=== PATIENT | male | born 1935 | race Caucasian/White ===

== ENCOUNTER 2017-01-17 23:34 | Inpatient (IN) | payer MEDICARE, OTHER ==
[~2017-01-17] VITALS: Ht 180.3 cm; Wt 88.0 kg
[~2017-01-17 23:34] MED LIST: ACET1TAB49 PO; ALLO300T46 PO; LISI-325 PO; METF500T4 PO; NIFE30TA PO; OMEP20CA9 PO; TAMS-14
[2017-01-18] MEDS ORDERED: ONDANSETRON 4 MG INJ IV STA (01:51)
--- NOTE | 2017-01-18 01:52 | RADRPT ---
PROCEDURE: XR Chest. CLINICAL INDICATION: Chest pain. TECHNIQUE: Single frontal view of the chest. COMPARISON: None. FINDINGS: Mild cardiomegaly. Mild atherosclerotic calcifications in the thoracic aorta. The lungs are clear. N o signs of pleural fluid or pneumothorax are seen. The osseous structures and soft tissues are unrem arkable. IMPRESSION: No evidence for active cardiopulmonary disease. RPTAT: [facility] Physician Yohana Date Time Electronically viewed and signed by Forest Rodriguez Physician on 01/18/2017 01:52 RS/
[2017-01-18 02:22] LABS: BASOPHILS % 0.3 % (0.0-2.0); EOSINOPHILS % 0.1 % (0.0-7.0); HEMATOCRIT 41.7 % (42.0-52.0); HEMOGLOBIN 14.7 g/dl (14.0-18.0); LYMPHOCYTES # 0.6 10^3/ul (0.8-2.9); LYMPHOCYTES % 5.9 % (15.0-51.0); MEAN CORPUSCULAR HEMOGLOBIN 30.8 pg (29.0-33.0); MEAN CORPUSCULAR HGB CONC 35.3 g/dl (32.0-37.0); MEAN CORPUSCULAR VOLUME 87.4 fl (82.0-101.0); MEAN PLATELET VOLUME 11.4 fl (7.4-10.4); MONOCYTE # 0.5 10^3/ul (0.3-0.9); NEUTROPHILS % 88.2 % (39.0-77.0); PLATELET COUNT 167 10^3/UL (140-415); RED BLOOD COUNT 4.77 10^6/ul (4.70-6.10); RED CELL DISTRIBUTION WIDTH 12.7 % (11.5-14.5); WHITE BLOOD COUNT 10.5 10^3/ul (4.8-10.8)
[2017-01-18 02:40] LABS: INR 0.9; PARTIAL THROMBOPLASTIN TIME 25.6 Sec (25.0-35.0); PROTIME 12.1 Sec (12.2-14.2); PT RATIO 0.9
[2017-01-18 02:47] LABS: ALANINE AMINOTRANSFERASE 59 IU/L (13-69); ALBUMIN 4.3 g/dl (3.3-4.9); ALBUMIN/GLOBULIN RATIO 1.38; ALKALINE PHOSPHATASE 113 IU/L (42-121); ANION GAP 14 (8-16); ASPARTATE AMINO TRANSFERASE 36 IU/L (15-46); BILIRUBIN,INDIRECT 0.4 mg/dl (0-1.1); BILIRUBIN,TOTAL 0.4 mg/dl (0.2-1.3); BLOOD UREA NITROGEN 26 mg/dl (7-20); CALCIUM 9.8 mg/dl (8.4-10.2); CARBON DIOXIDE 29 mmol/L (21-31); CHLORIDE 101 mmol/L (97-110); CREATININE 1.19 mg/dl (0.61-1.24); GLUCOSE 271 mg/dl (70-220); POTASSIUM 4.3 mmol/L (3.5-5.1); SODIUM 140 mmol/L (135-144); TOTAL PROTEIN 7.4 g/dl (6.1-8.1)
--- NOTE | 2017-01-18 02:58 | RADRPT ---
PROCEDURE: CT of the abdomen and pelvis without contrast CLINICAL INDICATION: Abdominal pain TECHNIQUE: Spiral CT images through the abdomen and pelvis without the use of contrast. The admin istered radiation dose is CTDI 17.1 mGy and DLP 1185.01 mGy*cm. Coronal and sagittal reformatted im ages were submitted. One or more of the following dose reduction techniques were used: automated ex posure control, adjustment of the mA and/or kV according to patient size, or use of iterative recons truction technique. COMPARISON: 09/21/2013 FINDINGS: Lack of oral and intravenous contrast somewhat limits evaluation. The lung bases are clear. No pl eural or pericardial effusion is seen. The thoracic aorta is calcified and ectatic.. The liver is normal in size, and attenuation. The spleen is enlarged measuring 16.7 cm. There is fat ty infiltration of the pancreas. Normal right adrenal gland. Unchanged small left adrenal nodule. Th e gallbladder is distended with a few small gallstones. No biliary ductal dilatation is seen. There are multiple bilateral cortical and parapelvic renal cysts, greater on the right, the largest measur ing 8.6 x 7.5 cm. the small fat density lesion in the left kidney is unchanged. There is no evidenc e of obstructive uropathy. The aorta is calcified and normal in caliber. There is no evidence for andrey wel obstruction, free air, or abscess. The appendix is not visualized. There is colonic diverticul osis without evidence of diverticulitis. No adenopathy or ascites is seen. The bladder is distended. There is a right bladder diverticulum . The prostate gland is moderately enlarged. Left hydrocele i s again noted. There are degenerative changes in the spine and mild levoscoliosis. Unchanged sclerotic lesion in the posterior right acetabulum. Bilateral hip osteoarthritis.. IMPRESSION: Distended gallbladder with small gallstones.. Colonic diverticulosis without evidence of acute diverticulitis. Bilateral cortical and parapelvic renal cysts. No evidence of obstructive uropathy. Splenomegaly. Prostatic hypertrophy and bladder diverticulum. RPTAT: [facility] Physician Dar Date Time Electronically viewed and signed by Physician Dar on 01/18/2017 02:57 CS/
[2017-01-18 02:59] LABS: B-TYPE NATRIURETIC PEPTIDE 60 PG/ML (0-450)
[2017-01-18] MEDS ORDERED: NAPR550T48 PO (03:03)
[2017-01-18] MEDS ORDERED: ASPI-664 PO (03:03)
[2017-01-18] MEDS ORDERED: SIMV20TA PO (03:03)
[2017-01-18] MEDS ORDERED: METO25TA4 PO (03:03)
[2017-01-18] MEDS ORDERED: CYAN500T46 PO (03:03)
[2017-01-18] MEDS ORDERED: SUMA100T4 PO (03:03)
[2017-01-18 03:11] LABS: TROPONIN-I < 0.012 ng/ml (0.00-0.12)
[2017-01-18] MEDS ORDERED: METOPROLOL 25 MG TAB PO ONE (03:30)
[2017-01-18] MEDS ORDERED: morphine 4 MG/ML VIAL IV ONE (04:18)
--- NOTE | 2017-01-18 05:30 | ERA ---
ER Documentation Chief Complaint Date/Time DATE: 01/18/17 TIME: 05:28 Chief Complaint chest pain HPI 81-year-old male here with chest pain and abdominal pain for the past 2 days getting progressively worse. He says the pain starts as a spasm in his lower chest and was on his upper abdomen. No fevers no chills. Mild nausea no vomiting. Pain is mild to moderate intensity ROS All systems reviewed and are negative except as per history of present illness. Medications Home Meds Reported Medications Cyanocobalamin* (Vitamin B12*) 500 Mcg Tab, 2000 MCG PO DAILY, TAB 01/18/17 Cyanocobalamin* (Vitamin B12*) 500 Mcg Tab, 500 MCG PO DAILY, TAB 01/18/17 Sumatriptan Succinate* (Sumatriptan Succinate*) 100 Mg Tablet, 100 MG PO BID Y for MIGRAINE HEADACHE, TAB May repeat after 2 hours if needed; MAX 200 mg/24 hours 01/18/17 Naproxen* (Naproxen*) 550 Mg Tablet, 550 MG PO BID Y for PAIN, TAB 01/18/17 Aspirin* (Aspirin* EC) 81 Mg Tablet.dr, 81 MG PO DAILY, TAB 01/18/17 Metoprolol Tartrate* (Lopressor*) 25 Mg Tablet, 25 MG PO BID, #60 TAB 01/18/17 Simvastatin* (Zocor*) 20 Mg Tablet, 20 MG PO QHS, #30 TAB 01/18/17 Tamsulosin Hcl* (Flomax*) 0.4 Mg Cap.sr.24h 02/11/11 Nifedipine* (Afeditab CR*) 30 Mg Tablet.sa, 60 MG PO DAILY 02/11/11 Metformin* (Glucophage*) 500 Mg Tab, 500 MG PO BID 02/11/11 Allopurinol* (Zyloprim*) 300 Mg Tablet, 300 MG PO DAILY 02/11/11 Lisinopril-Hydrochlorothiazide (Lisinopril-HCTZ) 1 Tab Tablet, 1 TAB PO DAILY 02/11/11 Omeprazole* (Prilosec*) 20 Mg Capsule.dr, 20 MG PO DAILY 02/11/11 Discontinued Reported Medications Acetaminophen/Phenyltolx Cit (Asa Free Analgesic Tablet) 1 Tab Tablet, 81 MG PO DAILY 02/11/11 Allergies Allergies: Coded Allergies: No Known Allergy (Unverified , 01/18/17) PMhx/Soc History of Surgery: Yes (bilat knee replacement, vocal cord polyps removed) Anesthesia Reaction: No Hx Respiratory Disorders: No Hx Cardiac Disorders: No (HTN) Hx Psychiatric Problems: No Hx Miscellaneous Medical Probl: Yes (frequent falls) Hx Alcohol Use: No Hx Substance Use: No Hx Tobacco Use: Yes (quit years ago) Smoking Status: Former smoker Physical Exam Vitals Vital Signs Date Time Temp Pulse Resp B/P Pulse Ox O2 Delivery O2 Flow Rate FiO2 01/18/17 04:12 95 172/104 96 Room Air 01/18/17 03:00 94 170/97 93 Room Air 01/18/17 02:28 Nasal Cannula 2 01/18/17 02:00 95 173/82 97 Room Air 01/18/17 01:25 91 183/102 95 Room Air 01/18/17 00:13 91 164/58 01/17/17 23:42 97.9 97 20 177/103 96 Physical Exam Const: [] Head: Atraumatic Eyes: Normal Conjunctiva ENT: Normal External Ears, Nose and Mouth. Neck: Full range of motion..~ No meningismus. Resp: Clear to auscultation bilaterally Cardio: Regular rate and rhythm, no murmurs Abd: Soft, non tender, non distended. Normal bowel sounds Skin: No petechiae or rashes Back: No midline or flank tenderness Ext: No cyanosis, or edema Neur: Awake and alert Psych: Normal Mood and Affect Result Diagram: 01/18/17 0210 01/18/17 0210 Results 24 hrs Laboratory Tests Test 01/18/17 02:10 White Blood Count 10.510^3/ul Red Blood Count 4.7710^6/ul Hemoglobin 14.7g/dl Hematocrit 41.7% Mean Corpuscular Volume 87.4fl Mean Corpuscular Hemoglobin 30.8pg Mean Corpuscular Hemoglobin Concent 35.3g/dl Red Cell Distribution Width 12.7% Platelet Count 85410^3/UL Mean Platelet Volume 11.4fl Neutrophils % 88.2% Lymphocytes % 5.9% Monocytes % 5.0% Eosinophils % 0.1% Basophils % 0.3% Nucleated Red Blood Cells % 0.0/100WBC Neutrophils # (Manual) 9.310^3/ul Lymphocytes # 0.610^3/ul Monocytes # 0.510^3/ul Eosinophils # 0.010^3/ul Basophils # 0.010^3/ul Nucleated Red Blood Cells # 0.010^3/ul Prothrombin Time 12.1Sec Prothrombin Time Ratio 0.9 INR International Normalized Ratio 0.90 Activated Partial Thromboplast Time 25.6Sec Sodium Level 140mmol/L Potassium Level 4.3mmol/L Chloride Level 101mmol/L Carbon Dioxide Level 29mmol/L Anion Gap 14 Blood Urea Nitrogen 26mg/dl Creatinine 1.19mg/dl Glucose Level 271mg/dl Calcium Level 9.8mg/dl Total Bilirubin 0.4mg/dl Direct Bilirubin 0.00mg/dl Indirect Bilirubin 0.4mg/dl Aspartate Amino Transf (AST/SGOT) 36IU/L Alanine Aminotransferase (ALT/SGPT) 59IU/L Alkaline Phosphatase 113IU/L Troponin I < 0.012ng/ml B-Type Natriuretic Peptide 60PG/ML Total Protein 7.4g/dl Albumin 4.3g/dl Globulin 3.10g/dl Albumin/Globulin Ratio 1.38 Current Medications Medications (Trade) Dose Ordered Sig/Starr Route PRN Reason Start Time Stop Time Status Last Admin Dose Admin Ondansetron HCl (Zofran Inj) 4 mg ONCE STAT IV 01/18/17 01:51 01/18/17 01:52 DC 01/18/17 02:12 Metoprolol Tartrate (Lopressor) 25 mg ONCE ONCE PO 01/18/17 03:30 01/18/17 03:31 DC 01/18/17 04:14 Morphine Sulfate (morphine) 4 mg ONCE ONCE IV 01/18/17 04:18 01/18/17 04:19 DC 01/18/17 04:47 Procedures/MDM EKG: Rate/Rhythm: [Normal Sinus Rhythm] QRS, ST, T-waves: [No changes consistent w/ acute ischemia] Impression: [No evidence of ischemia or arrhythmia] Chest X-ray 1V Interpreted by me: Soft Tissue: No acute abnormalities Bones: No acute abnormalities Mediastinum/Cardiac Silhouette/Lungs: [No acute abnormalities] Medical decision making: This is a very pleasant patient comes in with acute abdominal pain. Chest pain likely esophageal spasm related. There are gallstones and other findings on Monday decision with this abdominal pain, however the patient continues to have pain and will need to be admitted for the evaluation and management possible surgical consultation. Dr. Warren who has privileges here, we will admit the patient. His calling was on-call for him and accepted the patient Departure Diagnosis: Primary Impression: Abdominal pain Qualified Code: R10.84 - Generalized abdominal pain Condition: Stable WANDA CAGE Jan 18, 2017 05:30
[2017-01-18] MEDS ORDERED: hydrALAzine 20 MG INJ ONE (05:51)
[2017-01-18] MEDS ORDERED: hydrALAzine 20 MG INJ IV ONE ×2 (06:00→15:30)
[2017-01-18 08:14] VITALS: BP 139/83; RESP 16
[2017-01-18] MEDS ORDERED: DOCUSATE SODIUM 100 MG CAP PO PRN (11:30)
[2017-01-18] MEDS ORDERED: MAGNESIUM HYDROXIDE 30ML CUP PO PRN (11:30)
[2017-01-18] MEDS ORDERED: NACL 0.9% 3 ML SYG IV SCH (11:30)
[2017-01-18] MEDS ORDERED: morphine 2 MG INJ IV PRN (11:30)
[2017-01-18] MEDS ORDERED: BISACODYL 10 MG SUPP PR PRN (11:30)
[2017-01-18] MEDS ORDERED: ACETAMINOPHEN 325 MG TAB PO PRN (11:30)
[2017-01-18] MEDS ORDERED: HYDROCODONE/APAP (5/325) TAB PO PRN ×2 (11:30)
[2017-01-18] MEDS ORDERED: ACETAMINOPHEN 650 MG SUPP PR PRN (11:30)
[2017-01-18] MEDS ORDERED: NITROGLYCERIN (SL) 0.4 MG TAB SL PRN (11:30)
[2017-01-18] MEDS: INSULIN ASPART [NOVOLOG] 3 ML PEN SC SCH ×5 (12:00→21:13)
[2017-01-18 12:38] LABS: CREATINE KINASE 28 IU/L (23-200)
[2017-01-18] MEDS: SOD CHLORIDE 0.9% 1,000 ML IV SCH (12:46)
[2017-01-18 12:52] LABS: TROPONIN-I < 0.012 ng/ml (0.00-0.12)
[2017-01-18 13:03] VITALS: Ht 180.3 cm; Wt 88.0 kg
[2017-01-18 14:40] VITALS: BP 170/86; RESP 20
[2017-01-18] MEDS: ONDANSETRON 4 MG INJ IV PRN ×2 (15:00→21:23)
[2017-01-18] MEDS ORDERED: GLUCAGON 1 MG INJ IM PRN (16:00)
[2017-01-18] MEDS ORDERED: GLUCOSE GEL 15 GRAM TUBE BUCCAL PRN (16:00)
[2017-01-18] MEDS ORDERED: DEXTROSE 50% 50 ML SYRINGE IV PRN ×2 (16:00)
[2017-01-18] MEDS ORDERED: GLUCOSE GEL 15 GRAM TUBE PO PRN ×2 (16:00)
--- NOTE | 2017-01-18 16:22 | HP ---
Date/Time of Note Date/Time of Note DATE: 01/18/17 TIME: 16:18 Assessment/Plan VTE Prophylaxis VTE Prophylaxis Intervention: SCD's Lines/Catheters IV [facility]from [facility] [place] Assessment/Plan Chief Complaint/Hosp Course Impression and plan 1. Chest pain. Rule out ACS. We will follow-up until troponins. We will follow-up echocardiogram. 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 2. Abdominal pain. Patient noted with gallstones and symptomatic with pain upon palpation of abdomen. Surgeon to follow. Following reformations. 3. History of PUD. Start on PPI. 4. Hypertension. Continue antihypertensives as 5. Dyslipidemia. Continue on statin medication 6. Diabetes. Start insulin regimen. Will adjust as needed. Admission process time with a 40 minutes Discussed medical Problems: HPI/ROS Admit Date/Time Admit Date/Time Jan 18, 2017 at 05:24 Hx of Present Illness This is a 81-year-old male with history of high blood pressure high cholesterol and diabetes came developed [facility] due to reports of chest pain. According to the patient he started to have chest pain that started roughly around 4 PM the day prior to admission. Reported the pain is pressure-like in nature radiating down to his abdomen. He reports it was 10 out of 10 intensity. Nonexertional. He did come [facility] for further evaluation. Upon examination he did have a pelvic CT scan of his abdomen that did show him to have some distended gallbladder with small gallstones. There is also seen colonic diverticulosis without evidence of acute diverticulitis. Of note on labs initial troponin was negative. No white count noted. He was noted with high blood glucose as high as 271. His A1c was also 7.3. We will evaluate him for the aformentiond issues. ROS 12 point review of systems obtained and entirely negative except that mentioned in the history of present illness PMH/Family/Social Past Medical History Medical/surgical history 1. Hypertension 2. Diabetes 3. Hyperlipidemia Social History Smoking Status: Former smoker Exam/Review of Systems Vital Signs Vitals Vital Signs Date Time Temp Pulse Resp B/P Pulse Ox O2 Delivery O2 Flow Rate FiO2 01/18/17 14:40 97.3 80 20 170/86 95 01/18/17 06:41 Room Air 01/18/17 02:28 2 Exam Constitutional: alert, oriented Psych: nl mood/affect Head: normocephalic Eyes: nl conjunctiva Neck: supple, No jvd Gastrointestinal: soft, tender (diffusely) Musculoskeletal: No swelling Labs Result Diagram: 01/18/1720901/18/17209 Medications Medications Current Medications Morphine Sulfate (morphine) 1 mg Q4H PRN IV PAIN Last administered on 11:15; Admin Dose 1 MG; Start 01/18/17 at 11:30 Allopurinol (Zyloprim) 300 mg DAILY PO ; Start 01/19/17 at 09:00 Aspirin (Halfprin) 81 mg DAILY PO ; Start 01/19/17 at 09:00 Cyanocobalamin (Vitamin B12) 500 mcg DAILY PO ; Start 01/19/17 at 09:00 Metoprolol Tartrate (Lopressor) 25 mg BID PO ; Start 01/18/17 at 21:00 Nifedipine (Procardia Xl) 60 mg DAILY PO ; Start 01/19/17 at 09:00 Sumatriptan Succinate (Imitrex) 100 mg Q12H PRN PO MIGRAINE HEADACHE; Start at 11:30 Tamsulosin HCl (Flomax) 0.4 mg DAILY PO ; Start 01/19/17 at 09:00 Lisinopril (Zestril) 10 mg DAILY PO ; Start 01/19/17 at 09:00 Pantoprazole (Protonix Tab) 40 mg DAILY@06 PO ; Start 01/19/17 at 06:00 Atorvastatin Calcium 10 mg 10 mg DAILY@21 PO ; Start 01/18/17 at 21:00 Sodium Chloride (NS) 1,000 ml @ 75 mls/hr [id number] IV Last administered on 01/18 12:46; Admin Dose 75 MLS/HR; Start 01/18/17 at 11:22 Ondansetron HCl (Zofran Inj) 4 mg Q6H PRN IV NAUSEA AND/OR VOMITING Last administered on 01/18/17 15:00; Admin Dose 4 MG; Start 01/18/17 at 11:30 Acetaminophen (Tylenol Tab) 650 mg Q6H PRN PO PAIN LEVEL 1-3 OR FEVER; Start at 11:30 Acetaminophen (Tylenol Supp) 650 mg Q6H PRN NC PAIN LEVEL 1-3 OR FEVER; Start 01/18/17 at 11:30 Acetaminophen/ Hydrocodone Bitart ([place] (5/325)) 1 tab Q6H PRN PO MODERATE PAIN LEVEL 4-6; Start 01/18/17 at 11:30 Acetaminophen/ Hydrocodone Bitart ([place] (5/325)) 2 tab Q6H PRN PO SEVERE PAIN LEVEL 7-10; Start 01/18/17 at 11:30 Morphine Sulfate (morphine) 2 mg Q4H PRN IV SEVERE PAIN LEVEL 7-10; Start 01/18 at 11:30 Docusate Sodium (Colace) 100 mg Q12H PRN PO CONSTIPATION; Start 01/18/17 at 11: 30 Magnesium Hydroxide (Milk Of Mag) 30 ml DAILY PRN PO CONSTIPATION; Start at 11:30 Bisacodyl (Dulcolax Supp) 10 mg DAILY PRN NC CONSTIPATION; Start 01/18/17 at 11 :30 Pantoprazole (Protonix Iv) 40 mg DAILY@06 IV ; Start 01/19/17 at 06:00 Diagnostic Test (Pha) (Accu-Chek) 1 ea 02 XX ; Start 01/19/17 at 02:00 Nitroglycerin (Nitroglycerin (Sl Tab) 0.4 Mg) 1 tab Q5M PRN SL CHEST PAIN; Start 01/18/17 at 11:30 Diagnostic Test (Pha) (Accu-Chek) 1 ea 02 XX ; Start 01/19/17 at 02:00 Hydrochlorothiazide (Hydrochlorothiazide) 12.5 mg DAILY PO ; Start 01/19/17 at 09:00 Insulin Glargine (Lantus) 13 unit DAILY@08 SC ; Start 01/19/17 at 08:00 Miscellaneous Information 1 ea NOTE XX ; Start 01/18/17 at 16:00 Glucose (Glutose) 15 gm Q15M PRN PO DECREASED GLUCOSE; Start 01/18/17 at 16:00 Glucose (Glutose) 22.5 gm Q15M PRN PO DECREASED GLUCOSE; Start 01/18/17 at 16: 00 Dextrose (D50w Syringe) 25 ml Q15M PRN IV DECREASED GLUCOSE; Start 01/18/17 at 16:00 Dextrose (D50w Syringe) 50 ml Q15M PRN IV DECREASED GLUCOSE; Start 01/18/17 at 16:00 Glucagon (Glucagen) 1 mg Q15M PRN IM DECREASED GLUCOSE; Start 01/18/17 at 16:00 Glucose (Glutose) 15 gm Q15M PRN BUCCAL DECREASED GLUCOSE; Start 01/18/17 at 16 :00 Hydralazine HCl (Apresoline) 10 mg Q4H PRN IV sbp>160; Start 01/18/17 at 16:30 DEANA JACOBO Jan 18, 2017 16:22
[2017-01-18] MEDS ORDERED: hydrALAzine 20 MG INJ IV PRN (16:30)
--- NOTE | 2017-01-18 16:57 | RADRPT ---
Echocardiogram Report Patient Name: LUIS MIGUEL SANON Gender: Male Date: 1935 Study Date: 18-Jan-2017 Plaster Mechanic: Yojana [facility] Location: [facility]- Ref. Physician: DEANA JACOBO Quality: Technically Difficult Study Procedures: Transthoracic echocardiogram with complete 2D, M-Mode, and doppler examination. Indications: Chest Pain. 2D/M Mode Doppler Measurement Value Normal Ranges Measurement Value Normal Ranges LVIDd 2D 4.4 3.5 - 5.6 cm AV Peak Sai 1.2 m/sec LVIDs 2D 2.0 2.1 - 4.1 cm AV Peak PG 5.7 mmHg LVPWd 2D 1.1 0.6 - 1.1 cm LVOT Peak Sai 0.9 m/sec IVSd 2D 1.0 0.6 - 1.1 cm LVOT Peak PG 3.5 mmHg AoR Diam 2D 3.2 2.0 - 3.7 cm MV E Peak Sai 0.5 m/sec EDV 2D 86.3 cm3 MV A Peak Sai 0.7 m/sec ESV 2D 8.1 cm3 MV E/A 0.7 LA Dimen 2D 3.3 2.3 - 4.0 cm MV Decel Time 226 msec MV Decel [place] 2 MV E/A 0.7 Findings Left Ventricle: Normal left ventricular systolic function. Normal left ventricular cavity size. Normal left ventricular wall thickness. Ejection fraction is visually estimated at 55 %. Tissue Doppler/Mitral Doppler indices are consistent with impaired relaxation (Stage I diastolic dysfunction). Right Ventricle: Normal right ventricular systolic function. Not well visualized. Left Atrium: The left atrium is normal in size. Right Atrium: Not well visualized. Mitral Valve: Mitral valve leaflets appear mildly thickened. Mild mitral annular calcification. Trace mitral regurgitation. Aortic Valve: No significant aortic stenosis or insufficiency. Aortic cusps appear mildly calcified. Tricuspid Valve: Tricuspid valve not well visualized. Unable to obtain RVSP due to minimal presence of tricuspid regurgitation. Pulmonic Valve: Pulmonic valve not well visualized. Pericardium: Normal pericardium with no significant pericardial effusion. Aorta: Normal aortic root. IVC: Normal size and normal respiratory collapse consistent with normal right atrial pressure. Conclusions 1.Normal left ventricular systolic function. Normal left ventricular cavity size. Normal left ventricular wall thickness. Ejection fraction is visually estimated at 55 %. Tissue Doppler/Mitral Doppler indices are consistent with impaired relaxation (Stage I diastolic dysfunction). 2.Mitral valve leaflets appear mildly thickened. Mild mitral annular calcification. Trace mitral regurgitation. 3.Tricuspid valve not well visualized. Unable to obtain RVSP due to minimal presence of tricuspid regurgitation. Electronically Signed By: Luis Miguel Diaz 18-Jan-2017 16:56:30 -0700 Patient Name: LUIS MIGUEL SANON Study Date: 18-Jan-2017 [id number]
[2017-01-18] MEDS: SUMATRIPTAN 50 MG TAB PO PRN (17:37)
[2017-01-18 17:39] LABS: CREATINE KINASE 22 IU/L (23-200)
[2017-01-18 17:58] LABS: CK-MB 0.81 ng/ml (0.0-2.4); TROPONIN-I < 0.012 ng/ml (0.00-0.12)
--- NOTE | 2017-01-18 19:04 | CONS ---
Date/Time of Note Date/Time of Note DATE: 01/18/17 TIME: 18:51 Assessment/Plan Assessment/Plan Chief Complaint/Hosp Course 1. Abdominal pain: pain described presenting more like reflux or pud pain, no abdominal pain or tenderness upon examination -ppi -pain control 2. Cholelithiasis: CT noted: LFT's nl, negative baez's -poss lap douglas if pain persistent 3. Chest pain: troponin (-); pain presents more like reflux or pud pain -cardiac consult -consider tele monitoring if ruling out ACS 4. Colon diverticulosis, no diverticulitis -gi follow up -diet modification 5. diastolic dysfunction: nl EF -cardiac optimization 6. Hypertension -medical optimization 7. Hyperlipidemia -medical optimization 8. Diabetes: hgb a1c: 7.1 -blood sugar optimization Thank you. Patient seen and examined in collaboration with Dr. Roque Miranda. Problems: Consultation Date/Type/Reason Admit Date/Time Jan 18, 2017 at 05:24 Date of Consultation: Jan 18, 2017 Type of Consultation: Surgical Reason for Consultation gallstones Referring Provider: DEANA JACOBO Hx of Present Illness Ilya Hewitt is a 81 yo man who presented to the ED with complaints of dull chest pain radiating to his abdomen that started roughly around 4 PM yesterday. Pain is described as is pressure-like in nature radiating down to his abdomen without precipitating factors. No alleviating factors were reported. Associated symptoms include, nausea with bilious emesis. Denies hematemesis, sob , palpitations, dizziness, fevers, chills. Currently he reports headaches. CT scan of his abdomen showed a distended gallbladder with small gallstones. There is also seen colonic diverticulosis without evidence of acute diverticulitis. General surgery was asked to consult. Constitutional: No chills, No diaphoresis, No febrile Eyes: No visual change ENT: No congestion Respiratory: No cough, No pain, No shortness of breath Cardiovascular: chest pain, No lightheadedness Gastrointestinal: vomiting Genitourinary: hematuria, No dysuria Musculoskeletal: No back pain Endocrine: No polyuria Psychological: nl mood/affect Past Medical History 1. Hypertension 2. Diabetes 3. Hyperlipidemia Past Surgical History bilateral knee replacement vocal cord removal Family History Significant Family History: no pertinent family hx Social History Alcohol Use: none Smoking Status: Former smoker Drug Use: none Exam/Review of Systems Vital Signs Vitals Vital Signs Date Time Temp Pulse Resp B/P Pulse Ox O2 Delivery O2 Flow Rate FiO2 01/18/17 14:40 97.3 80 20 170/86 95 01/18/17 06:41 Room Air 01/18/17 02:28 2 Exam Constitutional: alert, oriented Psych: nl mood/affect Head: atraumatic, normocephalic Eyes: nl lids, nl sclera ENMT: mucosa pink and moist Neck: non-tender, supple Respiratory: clear to auscultation, normal air movement Cardiovascular: nl pulses, regular rate and rhythm Gastrointestinal: bowel sounds, non-tender, other (negative baez's, rotund), soft, No rebound or guarding Musculoskeletal: nl extremities to inspection Extremities: normal pulses, No pitting pedal edema Neurological: nl mental status, nl speech, nl strength Skin: No rash or lesions Results Result Diagram: 01/18/17 02101/18/17 0210 Results 24 hrs Laboratory Tests Test 01/18/17 02:10 01/18/17 07:48 01/18/17 11:43 01/18/17 12:10 White Blood Count 10.5 Red Blood Count 4.77 Hemoglobin 14.7 Hematocrit 41.7 L Mean Corpuscular Volume 87.4 Mean Corpuscular Hemoglobin 30.8 Mean Corpuscular Hemoglobin Concent 35.3 Red Cell Distribution Width 12.7 Platelet Count 167 Mean Platelet Volume 11.4 H Neutrophils % 88.2 H Lymphocytes % 5.9 L Monocytes % 5.0 Eosinophils % 0.1 Basophils % 0.3 Nucleated Red Blood Cells % 0.0 Neutrophils # (Manual) 9.3 H Lymphocytes # 0.6 L Monocytes # 0.5 Eosinophils # 0.0 Basophils # 0.0 Nucleated Red Blood Cells # 0.0 Prothrombin Time 12.1 L Prothrombin Time Ratio 0.9 INR International Normalized Ratio 0.90 Activated Partial Thromboplast Time 25.6 Sodium Level 140 Potassium Level 4.3 Chloride Level 101 Carbon Dioxide Level 29 Anion Gap 14 Blood Urea Nitrogen 26 H Creatinine 1.19 Glucose Level 271 H Calcium Level 9.8 Total Bilirubin 0.4 Direct Bilirubin 0.00 Indirect Bilirubin 0.4 Aspartate Amino Transf (AST/SGOT) 36 Alanine Aminotransferase (ALT/SGPT) 59 Alkaline Phosphatase 113 Troponin I < 0.012 < 0.012 B-Type Natriuretic Peptide 60 Total Protein 7.4 Albumin 4.3 Globulin 3.10 Albumin/Globulin Ratio 1.38 Bedside Glucose 237 H 217 Hemoglobin A1c 7.3 H Creatine Kinase 28 Creatine Kinase Index 2.9 Creatinine Kinase MB (Mass) 0.80 Test 01/18/17 17:05 01/18/17 17:30 Creatine Kinase 22 L Creatine Kinase Index 3.7 Creatinine Kinase MB (Mass) 0.81 Troponin I < 0.012 Bedside Glucose 219 Medications Medications Current Medications Morphine Sulfate (morphine) 1 mg Q4H PRN IV PAIN Last administered on 11:15; Admin Dose 1 MG; Start 01/18/17 at 11:30 Allopurinol (Zyloprim) 300 mg DAILY PO ; Start 01/19/17 at 09:00 Aspirin (Halfprin) 81 mg DAILY PO ; Start 01/19/17 at 09:00 Cyanocobalamin (Vitamin B12) 500 mcg DAILY PO ; Start 01/19/17 at 09:00 Metoprolol Tartrate (Lopressor) 25 mg BID PO ; Start 01/18/17 at 21:00 Nifedipine (Procardia Xl) 60 mg DAILY PO ; Start 01/19/17 at 09:00 Sumatriptan Succinate (Imitrex) 100 mg Q12H PRN PO MIGRAINE HEADACHE Last administered on 01/18/17 17:37; Admin Dose 100 MG; Start 01/18/17 at 11:30 Tamsulosin HCl (Flomax) 0.4 mg DAILY PO ; Start 01/19/17 at 09:00 Lisinopril (Zestril) 10 mg DAILY PO ; Start 01/19/17 at 09:00 Pantoprazole (Protonix Tab) 40 mg DAILY@06 PO ; Start 01/19/17 at 06:00 Atorvastatin Calcium 10 mg 10 mg DAILY@21 PO ; Start 01/18/17 at 21:00 Sodium Chloride (NS) 1,000 ml @ 75 mls/hr [id number] IV Last administered on 01/18 12:46; Admin Dose 75 MLS/HR; Start 01/18/17 at 11:22 Ondansetron HCl (Zofran Inj) 4 mg Q6H PRN IV NAUSEA AND/OR VOMITING Last administered on 01/18/17 15:00; Admin Dose 4 MG; Start 01/18/17 at 11:30 Acetaminophen (Tylenol Tab) 650 mg Q6H PRN PO PAIN LEVEL 1-3 OR FEVER; Start at 11:30 Acetaminophen (Tylenol Supp) 650 mg Q6H PRN OK PAIN LEVEL 1-3 OR FEVER; Start 01/18/17 at 11:30 Acetaminophen/ Hydrocodone Bitart ([place] (5/325)) 1 tab Q6H PRN PO MODERATE PAIN LEVEL 4-6; Start 01/18/17 at 11:30 Acetaminophen/ Hydrocodone Bitart ([place] (5/325)) 2 tab Q6H PRN PO SEVERE PAIN LEVEL 7-10; Start 01/18/17 at 11:30 Morphine Sulfate (morphine) 2 mg Q4H PRN IV SEVERE PAIN LEVEL 7-10; Start 01/18 at 11:30 Docusate Sodium (Colace) 100 mg Q12H PRN PO CONSTIPATION; Start 01/18/17 at 11: 30 Magnesium Hydroxide (Milk Of Mag) 30 ml DAILY PRN PO CONSTIPATION; Start at 11:30 Bisacodyl (Dulcolax Supp) 10 mg DAILY PRN OK CONSTIPATION; Start 01/18/17 at 11 :30 Pantoprazole (Protonix Iv) 40 mg DAILY@06 IV ; Start 01/19/17 at 06:00 Diagnostic Test (Pha) (Accu-Chek) 1 ea 02 XX ; Start 01/19/17 at 02:00 Nitroglycerin (Nitroglycerin (Sl Tab) 0.4 Mg) 1 tab Q5M PRN SL CHEST PAIN; Start 01/18/17 at 11:30 Diagnostic Test (Pha) (Accu-Chek) 1 ea 02 XX ; Start 01/19/17 at 02:00 Hydrochlorothiazide (Hydrochlorothiazide) 12.5 mg DAILY PO ; Start 01/19/17 at 09:00 Insulin Glargine (Lantus) 13 unit DAILY@08 SC ; Start 01/19/17 at 08:00 Miscellaneous Information 1 ea NOTE XX ; Start 01/18/17 at 16:00 Glucose (Glutose) 15 gm Q15M PRN PO DECREASED GLUCOSE; Start 01/18/17 at 16:00 Glucose (Glutose) 22.5 gm Q15M PRN PO DECREASED GLUCOSE; Start 01/18/17 at 16: 00 Dextrose (D50w Syringe) 25 ml Q15M PRN IV DECREASED GLUCOSE; Start 01/18/17 at 16:00 Dextrose (D50w Syringe) 50 ml Q15M PRN IV DECREASED GLUCOSE; Start 01/18/17 at 16:00 Glucagon (Glucagen) 1 mg Q15M PRN IM DECREASED GLUCOSE; Start 01/18/17 at 16:00 Glucose (Glutose) 15 gm Q15M PRN BUCCAL DECREASED GLUCOSE; Start 01/18/17 at 16 :00 Hydralazine HCl (Apresoline) 10 mg Q4H PRN IV sbp>160; Start 01/18/17 at 16:30 MARY ACOSTA NP Jan 18, 2017 19:03
[2017-01-18] MEDS ORDERED: PANTOPRAZOLE (EC) 40 MG TAB PO ONE (19:30)
[2017-01-18] MEDS ORDERED: PANTOPRAZOLE 40 MG INJ IV ONE (19:30)
[2017-01-18 19:46] VITALS: BP 170/90; RESP 19
[2017-01-18] MEDS: morphine 2 MG INJ IV PRN (19:52)
[2017-01-18] MEDS ORDERED: ATORVASTATIN 10 MG TAB PO SCH (21:00)
[2017-01-18] MEDS: METOPROLOL 25 MG TAB PO SCH (21:12)
[2017-01-19] MEDS: SOD CHLORIDE 0.9% 1,000 ML IV SCH ×2 (00:50→14:02)
[2017-01-19] MEDS: morphine 2 MG INJ IV PRN (01:01)
[2017-01-19] MEDS ORDERED: ACCU-CHEK XX SCH ×2 (02:00)
[2017-01-19 02:14] VITALS: BP 141/85; RESP 18
[2017-01-19] MEDS: ONDANSETRON 4 MG INJ IV PRN (05:27)
[2017-01-19 05:59] LABS: BASOPHILS % 0.2 % (0.0-2.0); EOSINOPHILS % 0.4 % (0.0-7.0); HEMATOCRIT 39.5 % (42.0-52.0); HEMOGLOBIN 13.8 g/dl (14.0-18.0); LYMPHOCYTES # 1.1 10^3/ul (0.8-2.9); LYMPHOCYTES % 12.4 % (15.0-51.0); MEAN CORPUSCULAR HEMOGLOBIN 30.7 pg (29.0-33.0); MEAN CORPUSCULAR HGB CONC 34.9 g/dl (32.0-37.0); MEAN CORPUSCULAR VOLUME 87.8 fl (82.0-101.0); MEAN PLATELET VOLUME 11.3 fl (7.4-10.4); MONOCYTE # 1.1 10^3/ul (0.3-0.9); MONOCYTES % 12.6 % (0.0-11.0); NEUTROPHIL # 6.3 10^3/ul (1.6-7.5); PLATELET COUNT 164 10^3/UL (140-415); RED CELL DISTRIBUTION WIDTH 12.7 % (11.5-14.5); WHITE BLOOD COUNT 8.5 10^3/ul (4.8-10.8)
[2017-01-19] MEDS ORDERED: PANTOPRAZOLE 40 MG INJ IV SCH (06:00)
[2017-01-19] MEDS ORDERED: PANTOPRAZOLE (EC) 40 MG TAB PO SCH (06:00)
[2017-01-19 06:26] LABS: ALBUMIN 3.4 g/dl (3.3-4.9); ALBUMIN/GLOBULIN RATIO 1.3; BILIRUBIN,INDIRECT 0.9 mg/dl (0-1.1); BILIRUBIN,TOTAL 0.9 mg/dl (0.2-1.3); CALCIUM 9.1 mg/dl (8.4-10.2); CHOL/HDL RATIO 2.7 RATIO; CREATININE 0.85 mg/dl (0.61-1.24); MAGNESIUM 1.6 mg/dl (1.7-2.5); PHOSPHORUS 3.3 mg/dl (2.5-4.9); POTASSIUM 3.6 mmol/L (3.5-5.1)
[2017-01-19 06:51] LABS: T3 UPTAKE 37.1 % (23.5-40.5)
[2017-01-19 07:10] LABS: THYROID STIMULATING HORMONE 0.805 MIU/L (0.465-4.680)
[2017-01-19] MEDS ORDERED: INSULIN GLARGINE [LANtus] 3 ML PEN SC SCH (08:00)
[2017-01-19] MEDS: INSULIN ASPART [NOVOLOG] 3 ML PEN SC SCH ×4 (08:08→12:13)
[2017-01-19 08:15] VITALS: BP 181/90; RESP 20
[2017-01-19] MEDS: METOPROLOL 25 MG TAB PO SCH (08:44)
[2017-01-19] MEDS: SUMATRIPTAN 50 MG TAB PO PRN (08:49)
[2017-01-19] MEDS ORDERED: TAMSULOSIN (SR) 0.4 MG CAP PO SCH (09:00)
[2017-01-19] MEDS ORDERED: CYANOCOBALAMIN 500 MCG TAB PO SCH ×2 (09:00)
[2017-01-19] MEDS ORDERED: NIFEdipine (XL) 60 MG TAB PO SCH (09:00)
[2017-01-19] MEDS ORDERED: ASPIRIN (EC) 81 MG TAB PO SCH (09:00)
[2017-01-19] MEDS ORDERED: LISINOPRIL 10 MG TAB PO SCH ×2 (09:00→21:00)
[2017-01-19] MEDS ORDERED: ALLOPURINOL 300 MG TAB PO SCH (09:00)
[2017-01-19] MEDS ORDERED: HYDROCHLOROTHIAZIDE 12.5 MG CAP PO SCH (09:00)
[2017-01-19 09:56] VITALS: BP 147/77; PULSE 68
--- NOTE | 2017-01-19 11:03 | PN ---
Date/Time of Note Date/Time of Note DATE: 01/19/17 TIME: 10:57 Assessment/Plan Lines/Catheters IV Catheter Type (from Nrsg): Peripheral IV Assessment/Plan Chief Complaint/Hosp Course 1. Abdominal pain: pain described presenting more like reflux or pud pain, no abdominal pain or tenderness upon examination; negative baez's -ppi -pain control 2. Cholelithiasis: CT noted: LFT's nl, negative baez's -poss lap douglas if pain persistent 3. Chest pain: troponin (-); pain presents more like reflux or pud pain -cardiac consult -consider tele monitoring if ruling out ACS 4. Colon diverticulosis, no diverticulitis -gi follow up -diet modification 5. diastolic dysfunction: nl EF -cardiac optimization 6. Hypertension -medical optimization 7. Hyperlipidemia -medical optimization 8. Diabetes: hgb a1c: 7.1 -blood sugar optimization 9. Abdominal distention: hx of IBD, no pain, + flatus Thank you. Patient seen and examined in collaboration with Dr. Roque Miranda. Problems: Subjective 24 Hr Interval Summary Abdominal pain much improved. Tolerated diet without n/v/abdominal pain. no fevers, chills. sob, n/v/d/dysuria, congestion. No c/o cp, palpitations, chest tightness. +flatus. Exam/Review of Systems Vital Signs Vitals Vital Signs Date Time Temp Pulse Resp B/P Pulse Ox O2 Delivery O2 Flow Rate FiO2 01/19/17 09:56 68 147/77 01/19/17 08:15 97.9 20 98 01/18/17 06:41 Room Air 01/18/17 02:28 2 Intake and Output 01/18/17 01/18/17 01/19/17 15:00 23:00 07:00 Intake Total 0 ml 1300 ml Output Total 800 ml Balance 0 ml 500 ml Exam Free Text/Dictation Constitutional: alert, oriented Psych: nl mood/affect Head: atraumatic, normocephalic Eyes: nl lids, nl sclera ENMT: mucosa pink and moist Neck: non-tender, supple Respiratory: clear to auscultation, normal air movement Cardiovascular: nl pulses, regular rate and rhythm Gastrointestinal: + bowel sounds, non-tender, other (negative baez's, rotund) , soft, min distended No rebound or guarding Musculoskeletal: nl extremities to inspection Extremities: normal pulses, No pitting pedal edema Neurological: nl mental status, nl speech, nl strength Skin: No rash or lesions Results Result Diagram: 01/19/17 0527 01/19/17 0527 MARY ACOSTA NP Jan 19, 2017 11:03
[2017-01-19] MEDS ORDERED: PANT40TA4 PO (11:29)
[2017-01-19] MEDS ORDERED: SITA25TA3 PO (11:29)
[2017-01-19] MEDS ORDERED: BUTA1CAP38 PO (11:29)
[2017-01-19] MEDS ORDERED: SUCR1TAB27 PO (11:29)
--- NOTE | 2017-01-19 11:40 | PDOCDIS ---
Discharge Instructions DIAGNOSIS Discharge Diagnosis 1. Chest pain. Likely PUD 2. Abdominal pain. Likely secondary to PUD 3. History of PUD. 4. Hypertension. 5. Dyslipidemia. 6. Diabetes. CONDITION Patient Condition: Stable HOME CARE INSTRUCTIONS: Special Diet: carbohydrate controlled, low fat/ low cholesterol FOLLOW UP/APPOINTMENTS Follow-up Plan 1. Follow up with information technology professor in 1-2 weeks. 2. Follow up with Dr. Ilya Diaz should have worsening chest pain Office Address [address] [place] [id number] Office DEANA JACOBO Jan 19, 2017 11:40
[2017-01-19] MEDS ORDERED: SUCRALFATE 1 GM TAB PO SCH (13:00)
[2017-01-19 14:43] VITALS: BP 103/64; RESP 20
--- NOTE | 2017-01-19 15:03 | CONS ---
DATE OF ADMISSION: 01/18/2017 DATE OF CONSULTATION: 01/19/2017 REASON FOR CONSULTATION: Chest pain, assess for acute coronary syndrome. HISTORY OF PRESENT ILLNESS: Mr. Hewitt is a very pleasant 81-year- old male with history of gastroesophageal reflux disease, peptic ulcer disease, hypertension, dyslipidemia, diabetes mellitus, remote tobacco, who initially entered with complaints of chest pain described as a pressure-like sensation radiating down from his chest to his abdomen, and then once in the hospital, stating that it radiates from his abdomen back to his chest and he thought was consistent with his prior gastroesophageal reflux pain. Initially upon arrival, temperature 97.9, blood pressure markedly elevated at 177/103, pulse 97, respiratory rate 20, sating 96 percent. Patient's labs showed white blood count 10.5, hemoglobin 14.7, platelet count 167. Sodium of 140, potassium 4.3, creatinine 1.1, BUN 26. BNP 60. Troponin negative. INR 0.9. The patient underwent a chest x-ray revealing no evidence of acute cardiopulmonary disease and abdominal pelvic CT revealing distended gallbladder with small gallstones, colonic diverticulosis, no evidence of acute diverticulitis. Bilateral cortical and parapelvic renal cysts. Prostatic hypertrophy and bladder diverticulum. The patient's electrocardiogram was normal sinus rhythm at 82 with normal axis, incomplete right bundle branch block, secondary repolarization abnormalities, and poor anterior R-wave progression. The patient subsequently admitted to the floor and since admitted to the floor, has not had recurrent episodes of chest pain. Patient has had a total of 2 negative troponins, ruling out acute myocardial infarction. Patient underwent a 2D echo interpreted by myself, revealing a preserved left ventricular ejection fraction of 55 percent with left ventricular diastolic dysfunction, trace mitral and tricuspid regurgitation. The patient initially followed by the surgical service with plans for outpatient follow-up and questionable need for laparoscopic cholecystectomy. PAST MEDICAL HISTORY: As above in HPI. MEDICATIONS: Currently in the hospital: 1. Carafate. 2. Allopurinol. 3. Aspirin. 4. Vitamin B12. 5. Procardia 60 mg daily. 6. Flomax 0.4 mg a day. 7. Zestril 10 mg daily. 8. Hydrochlorothiazide 12.5 mg daily. 9. Lantus. 10. Protonix. 11. Metoprolol 25 mg p.o. b.i.d., 12. Lipitor 10 mg at bedtime. ALLERGIES: NO KNOWN DRUG ALLERGIES. SOCIAL HISTORY: Remote tobacco, quit times greater than 50 years. Social EtOH. No illicit drug use. FAMILY HISTORY: No history of sudden cardiac or early CAD. REVIEW OF SYSTEMS: As above in HPI. CONSTITUTIONAL: No fevers, chills. LUNGS: No shortness breath. HEART: Intermittent chest pain. GASTROINTESTINAL: Abdominal pain. GENITOURINARY: No hematuria. MUSCULOSKELETAL: Degenerative joint disease. PSYCH: The patient has depression. NEUROLOGIC: No documented CVA. PHYSICAL EXAMINATION: VITAL SIGNS: Temperature of 97.9, blood pressure 147/77, pulse 68, satting 98 percent. GENERAL: The patient is alert, awake, no acute distress. NECK: JVP approximately 8-9 cm of water. LUNGS: Fair air movement throughout. HEART: Regular rate and rhythm. Normal S1, S2, a 1/6 systolic murmur, nondisplaced PMI. ABDOMEN: Soft. Positive bowel sounds. Mild tenderness to palpation in right upper quadrant. EXTREMITIES: No edema, 1+ pulses bilateral posterior tibials. LABORATORY DATA: As above in HPI with most recent from today, white count of 8.5, hemoglobin 13.8, platelet count 164. Troponin negative x3. Sodium 137, potassium 3.6, creatinine 0.85. LDL 58, HDL 45. TSH of 0.805. ECG as above in HPI. No further electrocardiograms are reviewed at this time. IMPRESSION: 1. Chest pain, assess for acute coronary syndrome, with patient having negative troponins x3, no ongoing chest pain at this time, preserved ejection fraction by echocardiogram. 2. Hypertension with improved control on oral antihypertensives. 3. Dyslipidemia with good lipid profile, currently on low dose statin. 4. Abnormal electrocardiogram with poor R-wave progression but preserved ejection fraction by 2D echocardiogram,and diastolic dysfunction by 2D echocardiogram. 5. Gastroesophageal reflux disease. 6. Peptic ulcer disease. 7. Cholelithiasis. RECOMMENDATIONS: 1. At this time, I would maintain patient on aspirin prophylaxis for cardiovascular events and statin for treatment of dyslipidemia. Additionally, would continue the patient's current metoprolol, Procardia, hydrochlorothiazide and Zestril with slight increase in Zestril to improve overall systolic blood pressure control, and will give patient sublingual nitroglycerin for recurrent episodes of concerning chest pain, and continue the patient's proton pump inhibitor and sucralfate as an outpatient. 2. Given the patient's cardiac risk factors and EKG abnormalities, I do believe that the patient would benefit from further stratification and thus have given him information to follow up in my office in order to obtain an outpatient stress test in the next 1-2 weeks. 3. Additionally, the patient will have close follow-up with surgery for possible need for a laparoscopic cholecystectomy for cholelithiasis, symptomatic. Thank you for allowing me to take part in the care of this patient. I will continue to follow him very closely with you through his inpatient hospital course. Dictated By: Ilya Diaz MD /[email or web address]/josy /Document#: [id number] CC: Abdulaziz Ozuna NP;*EndCC* MTDD
== END 2017-01-19 16:25 | disposition home or self-care (01) | DRG 392 ==
LOC: E/R 23:34 → PP2 01-18 05:24
PROVIDERS: ADMIT Internal Medicine; ATTEND Internal Medicine
DX: K21.9 Gastro-esophageal reflux disease without esophagitis (principal); E11.9 Type 2 diabetes mellitus without complications; I10 Essential (primary) hypertension; K80.20 Calculus of gallbladder without cholecystitis without obstruction; K57.90 Diverticulosis of intestine, part unspecified, without perforation or abscess without bleeding; R10.9 Unspecified abdominal pain; R07.9 Chest pain, unspecified; E78.5 Hyperlipidemia, unspecified
CPT/HCPCS: 36415; 71010; 74176; 80053; 80061; 82550; 82553; 82962; 83036; 83735; 83880; 84100; 84436; 84443; 84479; 84484; 85025; 85610; 85730; 93005; 93306; 96374; 96375; C9113; J0360; J1815; J2270; J2405; J7030